=== PATIENT | female | born 1940 | race Caucasian/White ===

== ENCOUNTER 2019-09-30 14:31 | Outpatient (CLI) | payer MEDICARE, OTHER ==
--- NOTE | 2019-09-30 14:55 | RAD ---
EXAM: 3 views of the left foot HISTORY: Foot pain COMPARISON: None FINDINGS: 3 views of the left foot shows no evidence of acute fracture or dislocation. Moderate dorsa l soft tissue swelling is seen. Moderate midfoot degenerative changes are present. IMPRESSION: No evidence of acute osseous abnormality.
== END 2019-09-30 14:32 | disposition home or self-care (01) ==
LOC: BICRAD 14:31
PROVIDERS: ATTEND Family Medicine
DX: M79.672 Pain in left foot (principal)

== ENCOUNTER 2023-12-21 14:51 | Emergency (ER) | payer MEDICARE, OTHER | END 2023-12-21 21:59 | LOC: ERS 14:51 | DX: S09.90XA Unspecified injury of head, initial encounter (principal); E11.9 Type 2 diabetes mellitus without complications; I10 Essential (primary) hypertension; W01.10XA Fall on same level from slipping, tripping and stumbling with subsequent striking against unspecified object, initial encounter | CPT/HCPCS: 70450; 72125 ==